=== PATIENT | male | born 1985 | race Two or more races ===

== ENCOUNTER 2019-07-04 10:49 | Emergency (ER) | payer SELFPAY ==
[~2019-07-04] VITALS: Ht 182.9 cm; Wt 75.0 kg
[2019-07-04] MEDS ORDERED: KETOROLAC 60MG/2ML VIAL IM STA (13:40)
[2019-07-04 14:18] LABS: EOSINOPHILS % 0.1 % (0.0-5.0); HEMATOCRIT. 44.7 % (42.0-52.0); HEMOGLOBIN. 14.8 g/dL (14.0-18.0); LYMPHOCYTES % 17.4 % (20.0-50.0); MEAN CORPUSCULAR HEMOGLOBIN 27.9 pg (28.0-32.0); MEAN CORPUSCULAR VOLUME 84.2 fL (80.0-94.0); MEAN PLATELET VOLUME 8.1 fl (7.4-10.4); NEUTROPHILS % 74.5 % (40.0-76.0); PLATELET 259 x1000/uL (130-400); RED BLOOD CELL COUNT 5.31 mill/uL (4.7-6.1)
[2019-07-04 14:24] LABS: CHLORIDE 103 mEq/L (98-107)
[2019-07-04 16:39] VITALS: BP 149/86
== END 2019-07-04 17:00 | disposition home or self-care (01) ==
LOC: ER 10:49
DX: J98.8 Other specified respiratory disorders (principal); B34.8 Other viral infections of unspecified site; F17.290 Nicotine dependence, other tobacco product, uncomplicated; F12.10 Cannabis abuse, uncomplicated; Z88.0 Allergy status to penicillin
CPT/HCPCS: 36415; 71045; 80053; 83690; 85025; 96372; 99284; 99406; J1885

== ENCOUNTER 2021-08-29 14:24 | Emergency (ER) | payer MEDICAID ==
[~2021-08-29] VITALS: Ht 182.9 cm; Wt 78.0 kg
[2021-08-29 14:32] VITALS: BP 158/107
[2021-08-29] MEDS ORDERED: KETOROLAC 60MG/2ML VIAL IM ONE (15:00)
[2021-08-29] MEDS ORDERED: NAPR-681 MT (15:57)
== END 2021-08-29 16:16 | disposition home or self-care (01) ==
LOC: ER 14:24
DX: M25.561 Pain in right knee (principal); M79.89 Other specified soft tissue disorders; R03.0 Elevated blood-pressure reading, without diagnosis of hypertension
CPT/HCPCS: 73562; 96372; 99283; J1885

== ENCOUNTER 2022-07-13 11:36 | Emergency (ER) | payer MEDICAID ==
[~2022-07-13] VITALS: Ht 182.9 cm; Wt 79.0 kg
[~2022-07-13 11:36] MED LIST: NAPR-681 MT
[2022-07-13 11:39] VITALS: BP 146/92
[2022-07-13 14:24] LABS: CLARITY URINE CLEAR (CLEAR); COLOR URINE YELLOW (YELLOW); KETONES URINE NEGATIVE (NEGATIVE); LEUKOCYTE ESTERASE URINE NEGATIVE (NEGATIVE); NITRITE URINE NEGATIVE (NEGATIVE); OCCULT BLOOD URINE NEGATIVE (NEGATIVE); PH URINE 5.5 (4.5-8.0); PROTEIN URINE NEGATIVE (NEGATIVE); SPECIFIC GRAVITY URINE 1.023 (1.005-1.030); UROBILINOGEN URINE 0.2 E.U./dL (0.2-1.0)
[2022-07-13 14:26] LABS: BASOPHILS % 1.1 % (0.0-2.0); EOSINOPHILS % 0.4 % (0.0-5.0); HEMATOCRIT. 42.2 % (42.0-52.0); HEMOGLOBIN. 14.3 g/dL (14.0-18.0); MEAN CORPUSCULAR HEMOGLOBIN 30.5 pg (28.0-32.0); MEAN CORPUSCULAR VOLUME 90.2 fL (80.0-94.0); MEAN PLATELET VOLUME 8.6 fl (7.4-10.4); MONOCYTES % 12.3 % (2.0-8.0); NEUTROPHILS % 62.2 % (40.0-76.0); PLATELET 214 x1000/uL (130-400); RED BLOOD CELL COUNT 4.68 mill/uL (4.7-6.1); RED CELL DISTRIBUTION WIDTH 13.5 % (11.6-14.6)
[2022-07-13 14:32] LABS: CHLORIDE 101 mEq/L (98-107)
[2022-07-13 14:38] LABS: ETHANOL BLOOD < 10 mg/dL
[2022-07-13 14:54] LABS: *AMPHETAMINES SCREEN URINE NEGATIVE (NEGATIVE); *BARBITURATES SCREEN URINE NEGATIVE (NEGATIVE); *BENZODIAZEPINES SCREEN URINE NEGATIVE (NEGATIVE); *COCAINE SCREEN URINE NEGATIVE (NEGATIVE); CANNABINOID URINE SCREEN PRESUMTIVE POSITIVE (NEGATIVE); METHADONE URINE SCREEN NEGATIVE (NEGATIVE); OPIATES URINE SCREEN NEGATIVE (NEGATIVE); PHENCYCLIDINE URINE SCREEN NEGATIVE (NEGATIVE)
[2022-07-13] MEDS ORDERED: LORA-250 PO (15:00)
[2022-07-13] MEDS ORDERED: LORAZEPAM 1MG TABLET PO NR (15:00)
== END 2022-07-13 15:29 | disposition home or self-care (01) ==
LOC: ER 11:36
DX: F41.9 Anxiety disorder, unspecified (principal); F20.9 Schizophrenia, unspecified; Z88.0 Allergy status to penicillin
CPT/HCPCS: 36415; 80048; 80305; 80320; 81003; 85025; 99283; G0480

== ENCOUNTER 2022-07-20 08:48 | Emergency (ER) | payer MEDICAID ==
[~2022-07-20] VITALS: Ht 182.9 cm; Wt 79.0 kg
[~2022-07-20 08:48] MED LIST changes: +LORA-250 PO
[2022-07-20] MEDS ORDERED: IBUPROFEN 400MG TABLET PO ONE (10:15)
[2022-07-20 10:25] VITALS: BP 133/82
[2022-07-20] MEDS ORDERED: INDO-13 MT (11:00)
[2022-07-20] MEDS ORDERED: COLC0.6C3 PO (11:00)
[2022-07-20] MEDS ORDERED: P20 MT (11:00)
== END 2022-07-20 11:43 | disposition home or self-care (01) ==
LOC: ER 08:48
DX: M25.572 Pain in left ankle and joints of left foot (principal); M25.571 Pain in right ankle and joints of right foot; M10.9 Gout, unspecified; I10 Essential (primary) hypertension; F41.9 Anxiety disorder, unspecified; F20.9 Schizophrenia, unspecified; F12.10 Cannabis abuse, uncomplicated
CPT/HCPCS: 93970; 99284